=== PATIENT | female | born 1975 | race Caucasian/White ===

== ENCOUNTER 2019-12-02 14:20 | Emergency (ER) | payer SELFPAY ==
[~2019-12-02] VITALS: Ht 162.6 cm; Wt 61.2 kg
[~2019-12-02 14:20] MED LIST: ATEN-60
[2019-12-02 14:35] VITALS: BP 143/85
[2019-12-02] MEDS ORDERED: IBUPROFEN 800 MG TAB PO ONE (16:00)
== END 2019-12-02 16:28 | disposition home or self-care (01) ==
LOC: ER 14:20
DX: S93.602A Unspecified sprain of left foot, initial encounter (principal); I10 Essential (primary) hypertension; F17.210 Nicotine dependence, cigarettes, uncomplicated; Z88.1 Allergy status to other antibiotic agents; X50.9XXA Other and unspecified overexertion or strenuous movements or postures, initial encounter; Y93.89 Activity, other specified; Y92.89 Other specified places as the place of occurrence of the external cause; Y99.8 Other external cause status
CPT/HCPCS: 73630

== ENCOUNTER 2021-07-13 09:52 | Emergency (ER) | payer SELFPAY ==
[~2021-07-13] VITALS: Ht 165.1 cm; Wt 59.0 kg
[2021-07-13 10:33] VITALS: BP 149/95
[2021-07-13] MEDS ORDERED: KETOROLAC TROMETH 60MG/2ML VIAL IM ONE (11:15)
[2021-07-13] MEDS ORDERED: INDO50CA82 PO (11:44)
[2021-07-13] MEDS ORDERED: COLC1CAP PO (11:44)
== END 2021-07-13 11:51 | disposition home or self-care (01) ==
LOC: ER 09:52
DX: M10.9 Gout, unspecified (principal); F17.210 Nicotine dependence, cigarettes, uncomplicated; I10 Essential (primary) hypertension
CPT/HCPCS: 73630; 96372; 99283; J1885

== ENCOUNTER 2022-01-26 10:15 | Emergency (ER) | payer OTHER ==
[~2022-01-26] VITALS: Ht 162.6 cm; Wt 65.7 kg
[~2022-01-26 10:15] MED LIST changes: +COLC1CAP PO; +INDO50CA82 PO
[2022-01-26 11:39] VITALS: BP 145/87
[2022-01-26] MEDS ORDERED: AMOX-277 PO ×2 (11:56→11:59)
[2022-01-26] MEDS ORDERED: IBUP800T27 PO ×2 (11:56→11:59)
== END 2022-01-26 12:07 | disposition home or self-care (01) ==
LOC: ER 10:15
DX: H66.92 Otitis media, unspecified, left ear (principal); I10 Essential (primary) hypertension; M10.9 Gout, unspecified; F17.210 Nicotine dependence, cigarettes, uncomplicated; Z79.1 Long term (current) use of non-steroidal anti-inflammatories (NSAID); Z79.2 Long term (current) use of antibiotics; Z79.899 Other long term (current) drug therapy; Z88.8 Allergy status to other drugs, medicaments and biological substances